=== PATIENT | male | born 1970 | race African-American/Black ===

== ENCOUNTER 2018-01-01 18:18 | Emergency (ER) | payer OTHER ==
[~2018-01-01] VITALS: Ht 170.2 cm; Wt 92.5 kg
[~2018-01-01 18:18] MED LIST: INDOCIN25 MG PO; NORCO 7.5/321 TABLET PO; VALIUM5 MG PO
[2018-01-01] MEDS ORDERED: MOTRIN600 MG PO (20:25)
[2018-01-01 20:44] VITALS: BP 134/87
== END 2018-01-01 20:58 | disposition home or self-care (01) ==
LOC: EME 18:18
PROC: 2W3QX1Z Immobilization of Right Lower Leg using Splint (ICD-10-PCS; principal; 2018-01-01)
DX: S86.011A Strain of right Achilles tendon, initial encounter (principal); Y93.67 Activity, basketball
CPT/HCPCS: 73610; 99281; 99284